=== PATIENT | male | born 1980 | race Caucasian/White ===

== ENCOUNTER 2016-11-19 11:00 | Emergency (ER) | payer OTHER ==
[~2016-11-19] VITALS: Ht 167.6 cm; Wt 77.9 kg
[2016-11-19 11:04] VITALS: TEMP 36.6; Ht 167.6 cm; Wt 77.9 kg
--- NOTE | 2016-11-19 12:09 | EMERGENCY ROOM VISIT NOTE ---
ED Visit Note First contact with patient: 11:07 CHIEF COMPLAINT: Left wrist laceration at work last evening HISTORY OF PRESENT ILLNESS: Patient is a [id number] 36-year-old male who presents to emergency department for evaluation of a laceration to the ulnar aspect of the left wrist that he sustained last evening. He slipped at work, striking his left arm on a wall, causing the laceration described below. Injury occurred about 11 hours ago. He did not initially notice the laceration. They cleansed the area with antiseptic, and applied butterfly tapes. Bleeding has been controlled. He denies any numbness , tingling or weakness into the hand or extremity. He believes his tetanus is greater than 10 years ago. REVIEW OF SYSTEMS: Review of systems as per HPI. All other systems reviewed were negative. At least 6 systems reviewed. PMH: Electronic medical records are reviewed and summarized as above/below. See Problem List. SOCIAL HISTORY: Patient lives at home with his and children. He does not smoke. PHYSICAL EXAM: Vital Signs: Reviewed Nurse's notes. There is a 2 cm long laceration on the ulnar aspect of the wrist/forearm. The edges are gaping apart. There is no foreign material in the wound and it looks clean. There is no active bleeding. No deep structures such as tendons or nerves are seen in the base of the wound. Radial and ulnar pulses are easily palpable. He has full range of motion of the wrist and fingers. Sensation to light touch is intact. EMERGENCY DEPARTMENT COURSE: The wound was cleansed with Betadine and irrigated with saline. He was then reapproximated with benzoin and Steri-Strips. I discussed with him the risks of infection with delayed primary closure, given that he is 12 hours out from the incident, and advised against suturing. He expressed understanding of this and was agreeable. He was educated on worrisome signs or symptoms for which she should return to the emergency department. His tetanus was updated. I do not suspect foreign body, fracture or neurovascular or tendinous injury. Current/Historical Medications No Active Prescriptions or Reported Meds Allergies Coded Allergies: No Known Allergies (Unverified , 11/19/16) Vital Signs Date Time Temp Pulse Resp B/P Pulse Ox O2 Delivery O2 Flow Rate FiO2 11/19/16 12:23 80 16 140/70 99 11/19/16 11:04 36.6 79 16 153/80 100 Room Air Medications Administered Medications (Trade) Dose Ordered Sig/Mumtaz Route Start Time Stop Time Status Last Admin Dose Admin Diphtheria/ Pertussis/Tetanus Vacc (Adacel Inj) 0.5 ml ONCE ONCE IM. 11/19/16 12:15 11/19/16 12:16 DC 11/19/16 12:21 0.5 ML Departure Information Impression Primary Impression: Wrist laceration Additional Impression: Work related injury Prescriptions No Active Prescriptions or Reported Meds Referrals No Doctor, Assigned (PCP) Patient Instructions A Signature Page, [facility] Additional Instructions Keep wound clean and dry. Use an antibiotic ointment for 3-4 days, then let wound dry. Allow the Steri-Strips to fall off on their own. They reinforce with new Steri-Strips if necessary. Return sooner for any signs of infection ( increasing redness, swelling, drainage). Ice and elevate for swelling and pain. Ibuprofen 600 mg and Tylenol 1000 mg every 6 hrs for pain.
[2016-11-19] MEDS ORDERED: DIPHTHERIA/TETANUS/PERTUSSIS 0.5 ML SYR/VIAL IM. ONE (12:15)
[2016-11-19 12:23] VITALS: BP 140/70; PULSE 80; O2SAT 99
== END 2016-11-19 12:24 | disposition home or self-care (01) ==
LOC: C.EDB 11:03 → C.EDD 12:24
DX: S61.512A Laceration without foreign body of left wrist, initial encounter (principal); W01.10XA Fall on same level from slipping, tripping and stumbling with subsequent striking against unspecified object, initial encounter; Y99.0 Civilian activity done for income or pay; Y92.9 Unspecified place or not applicable